=== PATIENT | male | born 1955 | race Caucasian/White ===

== ENCOUNTER 2022-04-09 07:40 | Outpatient (CLI) | payer MEDICARE, BC, SELFPAY ==
[2022-04-09 09:00] LABS: Chloride* 103 mmol/L (96-114)
[2022-04-09 09:01] LABS: Potassium* 3.1 mmol/L (3.6-5.1); Sodium* 141 mmol/L (135-149)
[2022-04-09 09:03] LABS: Alkaline Phosphatase* 62 U/L (40-150); Aspartate Amino Transferase* 24 U/L (12-35); Bilirubin Total* 0.7 mg/dL (0.1-1.5); Blood Urea Nitrogen* 25 mg/dL (7-30); Calcium* 9.1 mg/dL (8.4-10.6); Carbon Dioxide* 32 mmol/L (20-32); Cholesterol* 194 mg/dL (90-199); Creatinine* 1.3 mg/dL (0.5-1.5); Estimated Glomerular Filt Rate 60 ml/min; Glucose* 125 mg/dL (60-115); Total Protein* 6.4 g/dL (6.0-8.3); Triglycerides* 156 mg/dL (40-149)
[2022-04-09 09:04] LABS: Alanine Aminotransferase* 31 U/L (4-50); HDL Cholesterol* 38 mg/dL (>=40); LDL Cholesterol Calculated 125 mg/dL (<100)
[2022-04-09 09:27] LABS: PSA Screen* 2.26 ng/mL (0.10-4.00)
== END 2022-04-09 07:41 | disposition home or self-care (01) ==
LOC: NFLDREF 07:41
PROVIDERS: PCP Internal Medicine; Visit Provider Internal Medicine
DX: Z00.00 Encounter for general adult medical examination without abnormal findings (principal); I10 Essential (primary) hypertension; Z12.5 Encounter for screening for malignant neoplasm of prostate; Z13.6 Encounter for screening for cardiovascular disorders
CPT/HCPCS: 80053; 80061; 84153

== ENCOUNTER 2023-04-06 07:50 | Outpatient (CLI) | payer MEDICARE, BC, SELFPAY ==
--- OUTSIDE RECORDS SUMMARY | 2023-04-09 06:39 | XMS_ITS | Encounter Summary ---
Author Name Unknown Organization [place] Address [facility] [place] [address] Care Team Providers Care Policy Writer Name Role Phone Joe Dumas MD Primary Care Provider [phone] Encounter Details Date Type Department Care Team (Late st Contact Info) Description 06/10/2021 Orders Only [facility] [address] [place] [phone] Jeny Celaya PA-C [facility] [address] [place], [place] [address] Pre-op testing (Primary Dx) Social History Tobacco Use Types Packs/Day Years Used Date Smoking Tobacco: Never Assessed Sex and Gender Information Value Date Recorded Sex Assigned at Not on file Gender Identity Not on file Sexual Orientation Not on file COVID-19 Exposure Response Date Recorded In the last month, have you been in contact with someone who was confirmed or suspected to have Coronavirus / COVID-19? No / Unsure 06/10/2021 1:42 PM CDT documented as of this encounter Plan of Treatment Upcoming Encounters Date Type Department Care Team (Latest Contact Info) Description 08/18/2023 8:55 AM CDT Hospital Encounter [facility] [address] [place] [address] Nadeem Herman MD [facility] [address] [place], [place] [address] 08/18/2023 8:55 AM CDT - 08/18/2023 12:10 PM CDT Surgery [facility] [address] [place] [phone] Nadeem Herman MD [facility] [address] [place] [address] Left Total Knee Arthroplasty Scheduled Procedures Name Priority Associated Diagnoses Date/Ti me ARTHROPLASTY, KNEE, TOTAL Degenerative arthritis of left knee 08/18/2023 8:55 AM CDT documented as of this encounter Results * Hemoglobin (06/10/2021 1:59 PM CDT) Hemoglobin 14.2 13.3 - 17.7 g/dL 06/10/2021 2:02 PM CDT LABORATORY Blood STRUCTURE OF RIGHT UPPER LIMB / Unknown Venipuncture / Unknown 06/10/2021 1:59 PM CDT 06/10/2021 1:59 PM CDT Jeny Celaya PA-C LAB - BLOOD ORDER [facility] [address] [facility] Lab (1st floor, no room number) [place] [address], [facility] [phone] * Creatinine (06/10/2021 1:59 PM CDT) Creatinine 1.11 0.66 - 1.25 mg/dL 06/10/2021 2:18 PM CDT LABORATORY GFR Estimate 73 >60 mL/min/1.7 3m2 06/10/2021 2:18 PM CDT LABORATORY Comment:Effective February 192020 eGFRcr in adults is calculated using the 2020 CKD-EPI creatinine equation which includes age and gender (Ayad bee al., NEJM, DOI: 10.1056/BKRMdc3577873) Blood STRUCTURE OF RIGHT UPPER LIMB / Unknown Venipuncture / Unknown 06/10/2021 1:59 PM CDT 06/10/2021 1:59 PM CDT Jeny Celaya PA-C LAB - BLOOD ORDER [facility] [address] [facility] Lab (1st floor, no room number) [place] [address], [facility] [phone] documented in this encounter Visit Diagnoses Diagnosis Pre-op testing- Primary Preoperative examination, unspecified Degenerative arthritis of left knee Osteoarthrosis, unspecified whether generalized or localized, lower leg documented in this encounter Care Teams Policy Writer Relationship Specialty Start Date End Date Joe Dumas MD [place] [address] [place] [address] PCP - General Student in organized health care education/training program 05/28/21 documented as of this encounter
--- OUTSIDE RECORDS SUMMARY | 2023-04-09 06:39 | XMS_ITS | Clinical Summary ---
Author Name Unknown Organization [place] Address [address] [place] [address] Care Team Providers Care Slot Key Person Name Role Phone Joe Dumas MD Primary Care Provider Allergies Active Allergy Reactions Criticality Noted Date Comments Lisinopril Swelling High 06/24/2021 Swollen tongue Pollen Extract Itching 06/25/2021 [place] tree pollen Medications Medication Sig Dispensed Refills Start Date End Date Status triamterene-HCTZ (MAXZIDE-25) 37.5-25 MG tablet Take 1 tablet by mouth 2 times daily 0 Active amLODIPine (NORVASC) 5 MG tablet Take 5 mg by mouth daily 0 Active losartan (COZAAR) 50 MG tablet Take 50 mg by mouth daily 0 Active nicotine (NICODERM CQ) 14 MG/24HR [address] 1 patch onto the skin every 24 hours 0 Active cetirizine (ZYRTEC) 10 MG tablet Take 10 mg by mouth daily 0 Active calcium carbonate 600 mg-vitamin D 400 units (CALTRATE) 600-400 MG-UNIT per tablet Take 1 tablet by mouth daily 0 Active aspirin (ASA) 325 MG EC tabletIndications:S tatus post total knee replacement, right Take 1 tablet (325 mg) by mouth daily 42 tablet 0 06/25/2021 Active senna-docusate (SENOKOT-S/PERICOLA CE) 8.6-50 MG tabletIndications:S tatus post total knee replacement, right Take 1-2 tablets by mouth 2 times daily Take while on oral narcotics to prevent or treat constipation. 30 tablet 0 06/25/2021 Active acetaminophen (TYLENOL) 325 MG tabletIndications:S tatus post total knee replacement, right Take 3 tablets (975 mg) by mouth 4 times daily 100 tablet 0 06/25/2021 Active ketorolac (TORADOL) 10 MG tabletIndications:S tatus post total knee replacement, right Take 1 tablet (10 mg) by mouth every 6 hours as needed for moderate pain Do not take at the same time as Celebrex. Start Celebrex when Toradol is completed. 6 tablet 0 06/25/2021 Active celecoxib (CELEBREX) 200 MG capsuleIndications: Status post total knee replacement, right Take 1 capsule (200 mg) by mouth daily Do not take within 6 hours of ibuprofen (MOTRIN, ADVIL) or ketorolac (TORADOL) if prescribed. Start Celebrex when toradol completed. 42 capsule 0 06/25/2021 Active oxyCODONE (ROXICODONE) 5 MG tabletIndications:S tatus post total knee replacement, right Take 1-2 tablets (5-10 mg) by mouth every 4 hours as needed 40 tablet 0 06/26/2021 Active Active Problems Problem Noted Date Diagnosed Date Status post total knee replacement, right 2021 Social History Tobacco Use Types Packs/Day Years Used Date Smoking Tobacco: Former Cigarettes Q uit: 04/17/2021 Smokeless Tobacco: Never Alcohol Use Standard Drinks/Week Comments Yes 0 (1 standard drink = 0.6 oz pur e alcohol) 1-2/week Adolescent Education Answer Date Record ed Getting School Help Needed Not on file 12/11 Sex and Gender Information Value Date Recorded Sex Assigned at Not on file Gender Identity Not on file Sexual Orientation Not on file Last Filed Vital Signs Vital Sign [place] Time Taken Comments Blood Pressure 150/79 06/26/2021 8:43 AM CDT Pulse 103 06/26/2021 8:43 AM CDT Temperature 36.2 ??C (97.2 ??F) 06/26/2021 8:43 AM CD T Respiratory Rate 16 06/26/2021 8:43 AM CDT Oxygen Saturation 94% 06/26/2021 8:43 AM CDT Inhaled Oxygen Concentration - - Weight 108.6 kg (239 lb 6.4 oz) 06/25/2021 7:22 AM CDT Height 167.6 cm (5' 6) 06/25/2021 7:22 AM CDT Body Mass Index 38.64 06/25/2021 7:22 AM CDT Plan of Treatment Upcoming Encounters Date Type Department Care Team (Latest Contact Info) Description 08/18/2023 8:55 AM CDT Hospital Encounter [facility] [address] [place] [phone] Nadeem Herman MD [facility] [address] [place], [place] [address] 08/18/2023 8:55 AM CDT - 08/18/2023 12:10 PM CDT [facility] [address] [place] [phone] Nadeem Herman MD [facility] [address] [facility] [address] [place], [place] [phone] Left Total Knee Arthroplasty Scheduled Procedures Name Priority Associated Diagnoses Date/Ti me ARTHROPLASTY, KNEE, TOTAL Degenerative arthritis of left knee 08/18/2023 8:55 AM CDT Health Maintenance Due Date Last Done Comments ADVANCE CARE PLANNING 1954 ANNUAL REVIEW OF HM ORDERS 1954 CT COLONOGRAPHY 1954 FIT 1954 FLEX SIG 1954 sDNA (Cologuard) 1954 COLONOSCOPY 1964 COLORECTAL CANCER SCREENING 1964 HEPATITIS C SCREENING 1972 LIPID 1989 LUNG CANCER SCREENING 2004 RSV VACCINE ( & 60+) (1 - 1-dose 60+ series) 2014 AORTIC ANEURYSM SCREENING (SYSTEM ASSIGNED) 2019 FALL RISK ASSESSMENT 2019 MEDICARE ANNUAL WELLNESS VISIT 2019 COVID-19 Vaccine ( season) 2022 01/29/2021, 06/19/2020, 05/21/2020 INFLUENZA VACCINE (#1) 2022 , 03/27/2020, 12/21/2019, Additional history exists PHQ-2 (once per calendar year) 2023 DTAP/TDAP/TD IMMUNIZATION (2 - Td or Tdap) 04/16/2023 04/16/2013, 03/28/2007 Pneumococcal Vaccine: 65+ Years (3 of 3 - PPSV23 or PCV20) 04/20/2024 04/20/2019, 03/08/2019 ZOSTER IMMUNIZATION Completed 04/11/2021, 01/14/2021, 12/22/2020, Additional history exists HPV IMMUNIZATION Aged Out No longer e ligible based on patient's age to complete this topic IPV IMMUNIZATION Aged Out No longer e ligible based on patient's age to complete this topic MENINGITIS IMMUNIZATION Aged Out No l onger eligible based on patient's age to complete this topic RSV MONOCLONAL ANTIBODY Aged Out No l onger eligible based on patient's age to complete this topic Goals Goal Patient Goal Type Associated Problems Recent Progress Patient-Stated? Author Total Joint Replacement Hip Pathway Care Plan Total Joint Replacement Hip Pathway No Mireille [employer] Devices Implanted Type Area Lead Based Paint Technician Device Identifier Shelf Expiration Date Model / Serial / Lot Bone Cement Radiopaque Simplex Hv Full Dose 6194-1-001 - [id number] Implanted:Qty: 1 on 06/25/2021 by Nadeem Herman MD at [facility] Cement, Bone Right: Knee [employer] 08/18/2022 6194-1-001 / / [id number] Identity Imprint Ps Tibial Insert Sz 4 6mm Right Implanted:Qty: 1 on 06/25/2021 by Nadeem Herman MD at [facility] N/A: Knee CONFORMIS 04/20/2022 [id number] / / [id number] Additional Health Concerns Problem Noted Date Diagnosed Date Total Joint Replacement Hip Pathway 03/01/2023 Advance Directives For more information, please contact: [phone] Latest Code Status on File Code Status Date Activated Date Inactivated Comments Full Code 06/25/2021 2:35 PM 06/26/2021 12:47 PM All ba sic and advanced life-sustaining interventions are performed as appropriate Question Answer Comments Code status determined by: Unable to determine; FULL CODE until documents or legal decision maker available Care Teams Slot Key Person Relationship Specialty Start Date End Date Joe Dumas MD [address] [address] PCP - General Student in organized health care education/training program 05/28/21
--- OUTSIDE RECORDS SUMMARY | 2023-04-09 06:39 | XMS_ITS | Referral Summary ---
Author Name Unknown Organization [facility] Address [address] [place] [address] Care Team Providers Care Ice Cream Scooper Name Role Phone Unavailable Primary Care Provider Unavailabl e Source Comments Patient records contain information from all sites at [facility]. For routine questions regarding patient records, call [phone] during business hours, M-F 8:00 AM - 5:00 PM Central Time. Record requests for emergency care only can be directed to [phone] at any time.[facility] Immunizations Name Administration Dates Next Due DT, Pediatric 05/02/2007 Influenza Split 04/09/2013 Social History Tobacco Use Types Packs/Day Years Used Date Smoking Tobacco: Some Days Nutrition Answer Date Recorded Nutrition: EVOO Fat Source Unknown 06/30 Nutrition: Servings of Fruits/Vegetables per Day Not on file 06/30/2022 Dental Answer Date Recorded Dental: Regular Dentist Unknown 07/01/19 23 Sex and Gender Information Value Date Recorded Sex Assigned at Not on file Gender Identity Not on file Sexual Orientation Not on file Last Filed Vital Signs Vital Sign [place] Time Taken Comments Blood Pressure 125/72 04/27/2013 7:35 AM HUMAN RESOURCES CONSULTANT Pulse 63 04/27/2013 7:35 AM HUMAN RESOURCES CONSULTANT Temperature - - Respiratory Rate - - Oxygen Saturation - - Inhaled Oxygen Concentration - - Weight 101 kg (223 lb 5.2 oz) 04/27/2013 7:35 AM HUMAN RESOURCES CONSULTANT Height 164.8 cm (5' 4.88) 04/27/2013 7:35 AM CS T Body Mass Index 37.3 04/27/2013 7:35 AM HUMAN RESOURCES CONSULTANT Plan of Treatment Not on file
--- OUTSIDE RECORDS SUMMARY | 2023-04-09 06:39 | XMS_ITS | Clinical Summary ---
Author Name Unknown Organization [facility] Address [address] [place] [address] Care Team Providers Care End Maker Name Role Phone Unavailable Primary Care Provider Unavailabl e Source Comments Patient records contain information from all sites at [facility]. For routine questions regarding patient records, call [phone] during business hours, M-F 8:00 AM - 5:00 PM Central Time. Record requests for emergency care only can be directed to [phone] at any time.[facility] Immunizations Name Administration Dates Next Due DT, Pediatric 05/02/2007 Influenza Split 04/09/2013 Social History Tobacco Use Types Packs/Day Years Used Date Smoking Tobacco: Some Days Nutrition Answer Date Recorded Nutrition: EVOO Fat Source Unknown 06/30 Nutrition: Servings of Fruits/Vegetables per Day Not on file 06/30/2022 Dental Answer Date Recorded Dental: Regular Dentist Unknown 07/01/19 Sex and Gender Information Value Date Recorded Sex Assigned at Not on file Gender Identity Not on file Sexual Orientation Not on file Last Filed Vital Signs Vital Sign [place] Time Taken Comments Blood Pressure 125/72 04/27/2013 7:35 AM WARDROBE SPECIALIST Pulse 63 04/27/2013 7:35 AM WARDROBE SPECIALIST Temperature - - Respiratory Rate - - Oxygen Saturation - - Inhaled Oxygen Concentration - - Weight 101 kg (223 lb 5.2 oz) 04/27/2013 7:35 AM WARDROBE SPECIALIST Height 164.8 cm (5' 4.88) 04/27/2013 7:35 AM CS T Body Mass Index 37.3 04/27/2013 7:35 AM WARDROBE SPECIALIST Plan of Treatment Health Maintenance Due Date Last Done Comments CT Colonography 1954 Cologuard 1954 Colonoscopy 1954 Colorectal Cancer Screening 1954 FIT 1954 Hepatitis C Screening 1954 Depression Screening (Annual PHQ-2) 03/21/2023 Fall Risk Screen (Annual) 03/21/2023 Pneumococcal vaccine (65+ ye ars) (3 of 3 - PPSV23 or PCV20) 03/08/2024 04/20/2019, 03/08/2019 Fasting Glucose for Diabetes Screening 06/26/2024 06/26/2021 DTaP,Tdap,and Td Vaccines (4 - Td or Tdap) 04/12/2032 04/12/2022, 04/16/2013, 05/02/2007, Additional history exists Zoster Vaccines Completed 04/11/2021, 12/20, 12/22/2020, Additional history exists COVID-19 Vaccine Completed 01/05/2023, 11/2021, 08/12/2021, Additional history exists Influenza Vaccine Completed 01/05/2023, , 12/22/2020, Additional history exists
--- OUTSIDE RECORDS SUMMARY | 2023-04-09 06:39 | XMS_ITS | Encounter Summary ---
Author Name Unknown Organization [facility] Address [address] [place] [address] Care Team Providers Care Pvc Loader Name Role Phone Unavailable Primary Care Provider Unavailabl e Reason for Referral * Outpatient (Routine) - Authorized Specialty Diagnoses / Procedures Referred By Phil leyva Referred To Contact Diagnoses Canine Deputy Medical Exam Procedures OCC Drug screening Karol Giron P.A.-C., P.A. [address] [place] [address] [facility] Referral ID Status Reason Start Date Expiration Date V isits Requested Visits Authorized [id number] Authorized 06/30/2022 06/30/2023 1 1 Reason for Visit * Reason Comments Drug Screen * Appointment Request (Routine) - Closed Specialty Diagnoses / Procedures Referred By Phil leyva Referred To Contact Occupational Medicine Referral ID Status Reason Start Date Expiration Date Visits Re quested Visits Authorized [id number] Closed 06/30/2022 06/30/2023 1 Encounter Details Date Type Department Care Team (Latest Contact Info) Description 06/30/2022 11:45 AM CDT Clinical Support Department of Occupational Medicine in [place], [place] [address], [place] [address] Gilma Stewart, LTeresaP.N. Canine Deputy Medical Exam (Primary Dx) Social History Tobacco Use Types [...] on file Sexual Orientation Not on file documented as of this encounter Plan of Treatment Scheduled Orders Name Type Priority Associated Diagnoses Orde r Schedule OCC Drug screening Procedures Routine Canine Deputy Medical Exam Ordered: 06/30/2022 documented as of this encounter Visit Diagnoses Diagnosis Canine Deputy Medical Exam- Primary documented in this encounter
--- OUTSIDE RECORDS SUMMARY | 2023-04-09 06:39 | XMS_ITS ---
Author Name Unknown Organization [facility] Address [address] [place] [address] Care Team Providers Care Bobbin Inspector Name Role Phone Unavailable Unavailable Unavailable Surgery Details Not on file Complications Check Surgery Details section. Procedure Estimated Blood Loss Check Surgery Details section. Procedure Findings Check Surgery Details section. Procedure Specimens Taken Check Surgery Details section.
--- OUTSIDE RECORDS SUMMARY | 2023-04-09 06:39 | XMS_ITS | Referral Summary ---
Author Name Unknown Organization [place] Address [address] [place] [address] Care Team Providers Care Hall Worker Name Role Phone Joe Dumas MD Primary Care Provider [phone] Allergies Active Allergy Reactions Criticality Noted Date Comments Lisinopril Swelling High 06/24/2021 Swollen tongue Pollen Extract Itching 06/25/2021 [place] tree pollen Medications Medication Sig Dispensed Refills [...] Description 08/18/2023 8:55 AM CDT Hospital Encounter [facility] PeriOP Services [address] [place] [phone] Nadeem Herman MD [facility] [address] [facility] [address] [place], [place] [address] 08/18/2023 8:55 AM CDT - 08/18/2023 12:10 PM CDT Surgery [facility] Services [address] [place] [phone] Nadeem Herman MD [facility] [address] [facility] [address] [place], [place] [address] Left Total Knee Arthroplasty Scheduled Procedures Name Priority Associated Diagnoses Date/Ti me ARTHROPLASTY, KNEE, TOTAL Degenerative arthritis of left knee 08/18/2023 8:55 AM CDT Goals Goal Patient Goal Type Associated Problems Recent Progress Patient-Stated? Author Total Joint Replacement Hip Pathway Care Plan Total Joint Replacement Hip Pathway No Mireille Rosales Medical Devices Implanted Type Area Warehouse And Receiving Supervisor Device Identifier Shelf Expiration Date Model / Serial / Lot Bone Cement Radiopaque Simplex Hv Full Dose 6194-1-001 - [id number] Implanted:Qty: 1 on 06/25/2021 by Nadeem Herman MD at [facility] Cement, Bone Right: Knee [employer] 08/18/2022 6194-1-001 / / [id number] Identity Imprint Ps Tibial Insert Sz 4 6mm Right Implanted:Qty: 1 on 06/25/2021 by Nadeem Herman MD at [facility] N/A: Knee CONFORMIS 04/20/2022 [id number] / / [id number] Additional Health Concerns Problem Noted Date Diagnosed Date Total Joint Replacement Hip Pathway 03/01/2023 Advance Directives For more information, please contact: [phone] Latest Code Status on File Code Status Date Activated Date Inactivated Comments Full Code 06/25/2021 2:35 PM 06/26/2021 12:47 PM All ba sic and advanced life-sustaining interventions are performed as appropriate Question Answer Comments Code status determined by: Unable to determine; FULL CODE until documents or legal decision maker available Care Teams Hall Worker Relationship Specialty Start Date End Date Joe Dumas MD [address] [address] PCP - General Student in organized health care education/training program 05/28/21
--- OUTSIDE RECORDS SUMMARY | 2023-04-09 06:39 | XMS_ITS | Encounter Summary ---
Author Name Unknown Organization [place] Address [address] [place] [address] Care Team Providers Care Tennis Professional Name Role Phone Joe Dumas MD Primary Care Provider [phone] Encounter Details Date Type Department Care Team (Late st Contact Info) Description 03/10/2021 Documentation Only INTERFACED REPORT Unknown, Provider Social History Tobacco Use Types Packs/Day Years Used Date Smoking Tobacco: Never Assessed Sex and Gender Information Value Date Recorded Sex Assigned at Not on file Gender Identity Not on file Sexual Orientation Not on file documented as of this encounter Plan of Treatment Upcoming Encounters Date Type Department Care Team (Latest Contact Info) Description 08/18/2023 8:55 AM CDT Hospital Encounter [facility] [address] [place] [phone] Nadeem Herman MD [facility] [address] [facility] [address] [place], [place] [address] 08/18/2023 8:55 AM CDT - 08/18/2023 12:10 PM CDT Surgery [facility] [address] [place] [phone] Nadeem Herman MD [facility] [address] [facility] [address] [place], [place] [address] Left Total Knee Arthroplasty Scheduled Procedures Name Priority Associated Diagnoses Date/Ti me ARTHROPLASTY, KNEE, TOTAL Degenerative arthritis of left knee 08/18/2023 8:55 AM CDT documented as of this encounter Visit Diagnoses Not on filedocumented in this encounter Care Teams Tennis Professional Relationship Specialty Start Date End Date Joe Dumas MD [address] [address] PCP - General Student in organized health care education/training program 05/28/21 documented as of this encounter
== END 2023-04-06 07:51 | disposition home or self-care (01) ==
LOC: NFLDREF 04-09 06:37
PROVIDERS: PCP Internal Medicine; Referring Provider Internal Medicine; Visit Provider Internal Medicine
DX: Z00.00 Encounter for general adult medical examination without abnormal findings (principal); E87.6 Hypokalemia; I10 Essential (primary) hypertension; E66.9 Obesity, unspecified; Z12.5 Encounter for screening for malignant neoplasm of prostate
CPT/HCPCS: 80053; 80061; G0103

== ENCOUNTER 2023-09-05 08:16 | Outpatient (CLI) | payer MEDICARE, BC, SELFPAY ==
--- OUTSIDE RECORDS SUMMARY | 2023-09-05 08:21 | XMS_ITS | Clinical Summary ---
Author Organization [facility] Address [address] [place] [address] Care Team Providers Care Catering Convention Services Manager Name Role Phone Unavailable Primary Care Provider Unavailabl e Source Comments Patient records contain information from all sites at [facility]. For routine questions regarding patient records, call [phone] during business hours, M-F 8:00 AM - 5:00 PM Central Time. Record requests for emergency care only can be directed to [phone] at any time.[facility] Immunizations Name Administration Dates Next Due [...] Comments Blood Pressure 125/72 04/27/2013 7:35 AM AGRISCIENCE INSTRUCTOR Pulse 63 04/27/2013 7:35 AM AGRISCIENCE INSTRUCTOR Temperature - - Respiratory Rate - - Oxygen Saturation - - Inhaled Oxygen Concentration - - Weight 101 kg (223 lb 5.2 oz) 04/27/2013 7:35 AM AGRISCIENCE INSTRUCTOR Height 164.8 cm (5' 4.88) 04/27/2013 7:35 AM CS T Body Mass Index 37.3 04/27/2013 7:35 AM AGRISCIENCE INSTRUCTOR Plan of Treatment Health Maintenance Due Date Last Done Comments CT Colonography 1954 Cologuard 1954 Colonoscopy 1954 Colorectal Cancer Screening 1954 FIT 1954 Hepatitis C Screening 1954 Depression Screening (Annual PHQ-2) 03/21/2023 Fall Risk Screen (Annual) 03/21/2023 COVID-19 Vaccine (7 - 2022-2 4 season) 2023 01/05/2023, 01/27/2022, 08/12/2021, Additional history exists Pneumococcal vaccine (65+ ye ars) (3 of 3 - PPSV23 or PCV20) 03/08/2024 04/20/2019, 03/08/2019 Fasting Glucose for Diabetes Screening 06/26/2024 06/26/2021 DTaP,Tdap,and Td Vaccines (4 - Td or Tdap) 04/12/2032 04/12/2022, 04/16/2013, 05/02/2007, Additional history exists Zoster Vaccines Completed 04/11/2021, 12/20, 12/22/2020, Additional history exists Influenza Vaccine Completed 01/05/2023, , 12/22/2020, Additional history exists Procedures Procedure Name Priority Date/Time Associated Diagnosis Comments EXTI BASIC METABOLIC PANEL, FASTING, S Routine 06/26/2021 7:50 AM CDT from Last 3 Months or Most Recently Relevant to Health Maintenance
--- OUTSIDE RECORDS SUMMARY | 2023-09-05 08:21 | XMS_ITS | Encounter Summary ---
Author Organization [place] Address [address] [place] [address] Care Team Providers Care Breed To Wean Production Technician Name Role Phone Joe Dumas MD Primary Care Provider [phone] Encounter Details Date Type Department Care Team (Late st Contact Info) Description 03/10/2021 Documentation Only INTERFACED REPORT Unknown, Provider Social History Tobacco Use Types Packs/Day Years Used Date Smoking Tobacco: Never Assessed Sex and Gender Information Value Date Recorded Sex Assigned at Not on file Gender Identity Not on file Sexual Orientation Not on file documented as of this encounter Plan of Treatment Not on file documented as of this encounter Visit Diagnoses Not on filedocumented in this encounter Care Teams Breed To Wean Production Technician Relationship Specialty Start Date End Date Joe Dumas MD [address] [place] [address] PCP - General Student in organized health care education/training program 05/28/21 documented as of this encounter
--- OUTSIDE RECORDS SUMMARY | 2023-09-05 08:21 | XMS_ITS ---
Author Organization [facility] Address [address] [place] [address] Care Team Providers Care Marine Architect Name Role Phone Unavailable Unavailable Unavailable Surgery Details Not on file Complications Check Surgery Details section. Procedure Estimated Blood Loss Check Surgery Details section. Procedure Findings Check Surgery Details section. Procedure Specimens Taken Check Surgery Details section.
--- OUTSIDE RECORDS SUMMARY | 2023-09-05 08:21 | XMS_ITS | Referral Summary ---
Author Organization [facility] Address [address] [place] [address] Care Team Providers Care Manager Safe Name Role Phone Unavailable Primary Care Provider Unavailabl e Source Comments Patient records contain information from all sites at [facility]. For routine questions regarding patient records, call [phone] during business hours, M-F 8:00 AM - 5:00 PM Central Time. Record requests for emergency care only can be directed to [phone] at any time.[facility] Immunizations Name Administration Dates Next Due [...] Comments Blood Pressure 125/72 04/27/2013 7:35 AM CRATE BUILDER Pulse 63 04/27/2013 7:35 AM CRATE BUILDER Temperature - - Respiratory Rate - - Oxygen Saturation - - Inhaled Oxygen Concentration - - Weight 101 kg (223 lb 5.2 oz) 04/27/2013 7:35 AM CRATE BUILDER Height 164.8 cm (5' 4.88) 04/27/2013 7:35 AM CS T Body Mass Index 37.3 04/27/2013 7:35 AM CRATE BUILDER Plan of Treatment Not on file Procedures Procedure Name Priority Date/Time Associated Diagnosis Comments EXTI BASIC METABOLIC PANEL, FASTING, S Routine 06/26/2021 7:50 AM CDT from Last 3 Months or Most Recently Relevant to Health Maintenance
--- OUTSIDE RECORDS SUMMARY | 2023-09-05 08:21 | XMS_ITS | Encounter Summary ---
Author Organization [place] Address [address] [place] [address] Care Team Providers Care Rock Picker Name Role Phone Joe Dumas MD Primary Care Provider [phone] Encounter Details Date Type Department Care Team (Late st Contact Info) Description 06/10/2021 Orders Only [facility] [address] [place] [address] Jeny Celaya PA-C [facility] [address] [place] [address] Pre-op testing (Primary Dx) Social History Tobacco [...] on file documented as of this encounter Results * Hemoglobin (06/10/2021 1:59 PM CDT) Hemoglobin 14.2 13.3 - 17.7 g/dL 06/10/2021 2:02 PM CDT [facility] Blood STRUCTURE OF RIGHT UPPER LIMB / Unknown Venipuncture / Unknown 06/10/2021 1:59 PM CDT 06/10/2021 1:59 PM CDT Jeny Sim-Holly PA-C LAB - BLOOD ORDER [facility] [address] Lab (1st floor, no room number) [place] [address], [facility] [phone] * Creatinine (06/10/2021 1:59 PM CDT) Creatinine 1.11 0.66 - 1.25 mg/dL 06/10/2021 2:18 PM CDT LABORATORY GFR Estimate 73 >60 mL/min/1.7 3m2 06/10/2021 2:18 PM CDT LABORATORY Comment:Effective February 192020 eGFRcr in adults is calculated using the 2020 CKD-EPI creatinine equation which includes age and gender (Ayad et al., NEJM, DOI: 10.1056/HRKPkr8146108) Blood STRUCTURE OF RIGHT UPPER LIMB / Unknown Venipuncture / Unknown 06/10/2021 1:59 PM CDT 06/10/2021 1:59 PM CDT Jeny Sim-Holly PA-C LAB - BLOOD ORDER [facility] Acute Care Lab [address] Lab (1st floor, no room number) [place] [address], [facility] [phone] documented in this encounter Visit Diagnoses Diagnosis Pre-op testing- Primary Preoperative examination, unspecified documented in this encounter Care Teams Rock Picker Relationship Specialty Start Date End Date Joe Dumas MD [facility] [address] [place] [address] PCP - General Student in organized health care education/training program 05/28/21 documented as of this encounter
--- OUTSIDE RECORDS SUMMARY | 2023-09-05 08:21 | XMS_ITS | Clinical Summary ---
Author Organization [place] Address [address] [place] [address] Care Team Providers Care Consulting Psychologist Name Role Phone Joe Dumas MD Primary Care Provider Allergies Active Allergy Reactions Criticality Noted Date Comments Lisinopril Swelling High 06/24/2021 Swollen tongue Pollen Extract Itching 06/25/2021 [place] tree pollen Medications Medication Sig Dispensed Refills Start Date End Date Status triamterene-HCTZ (MAXZIDE-25) 37.5-25 MG tablet Take 1 tablet by mouth 2 times daily Active amLODIPine (NORVASC) 5 MG tablet Take 5 mg by mouth daily Active losartan (COZAAR) 50 MG tablet Take 50 mg by mouth daily Active nicotine (NICODERM CQ) 14 MG/24HR [address] 1 patch onto the skin every 24 hours Active cetirizine (ZYRTEC) 10 MG tablet Take 10 mg by mouth daily Active calcium carbonate 600 mg-vitamin D 400 units (CALTRATE) 600-400 MG-UNIT per tablet Take 1 tablet by mouth daily Active aspirin (ASA) 325 MG EC tabletIndications:S tatus post total knee replacement, right Take 1 tablet (325 mg) by mouth daily 42 tablet 06/25/2021 Active senna-docusate (SENOKOT-S/PERICOLA CE) 8.6-50 MG tabletIndications:S tatus post total knee replacement, right Take 1-2 tablets by mouth 2 times daily Take while on oral narcotics to prevent or treat constipation. 30 tablet 06/25/2021 Active acetaminophen (TYLENOL) 325 MG tabletIndications:S tatus post total knee replacement, right Take 3 tablets (975 mg) by mouth 4 times daily 100 tablet 06/25/2021 Active ketorolac (TORADOL) 10 MG tabletIndications:S tatus post total knee replacement, right Take 1 tablet (10 mg) by mouth every 6 hours as needed for moderate pain Do not take at the same time as Celebrex. Start Celebrex when Toradol is completed. 6 tablet 06/25/2021 Active celecoxib (CELEBREX) 200 MG capsuleIndications: Status post total knee replacement, right Take 1 capsule (200 mg) by mouth daily Do not take within 6 hours of ibuprofen (MOTRIN, ADVIL) or ketorolac (TORADOL) if prescribed. Start Celebrex when toradol completed. 42 capsule 06/25/2021 Active oxyCODONE (ROXICODONE) 5 MG tabletIndications:S tatus post total knee replacement, right Take 1-2 tablets (5-10 mg) by mouth every 4 hours as needed 40 tablet 06/26/2021 Active Active Problems Problem Noted Date [...] 06/25/2021 7:22 AM CDT Plan of Treatment Health Maintenance Due Date Last Done Comments ADVANCE CARE PLANNING 1955 ANNUAL REVIEW OF HM ORDERS 1954 CT COLONOGRAPHY 1954 FIT 1954 FLEX SIG 1954 sDNA (Cologuard) 1954 COLONOSCOPY 1964 COLORECTAL CANCER SCREENING 1964 HEPATITIS C SCREENING 1972 LIPID 1994 LUNG CANCER SCREENING 2004 RSV VACCINE ( & 60+) (1 - 1-dose 60+ series) 2014 FALL RISK ASSESSMENT 2019 MEDICARE ANNUAL WELLNESS VISIT 2019 COVID-19 Vaccine ( season) 2022 01/29/2021, 06/19/2020, 05/21/2020 PHQ-2 (once per calendar year) 2023 DTAP/TDAP/TD IMMUNIZATION (2 - Td or Tdap) 04/16/2023 04/16/2013, 03/28/2007 INFLUENZA VACCINE (Season Ended) 2023 12/22/2020, 03/27/2020, 12/21/2019, Additional history exists Pneumococcal Vaccine: 65+ Years (3 of 3 - PPSV23 or PCV20) 04/20/2024 04/20/2019, 03/08/2019 GLUCOSE 06/26/2024 06/26/2021 ZOSTER IMMUNIZATION Completed 04/11/2021, 01/14/2021, 12/22/2020, Additional [...] on patient's age to complete this topic Medical Devices Implanted Type Area Skin Care Instructor Device Identifier Shelf Expiration Date Model / Serial / Lot Bone Cement Radiopaque Simplex Hv Full Dose 6194-1-001 - [id number] Implanted:Qty: 1 on 06/25/2021 by Nadeem Herman MD at [facility] Cement, Bone Right: Knee [employer] 10/18/2022 6194-1-001 / / [id number] Bone Cement Radiopaque Simplex Hv Full Dose 6194-1-001 - [id number] Implanted:Qty: 1 on 06/25/2021 by Nadeem Herman MD at [facility] Cement, Bone Right: Knee [employer] 08/18/2022 6194-1-001 / / [id number] Identity Imprint Ps Tibial Insert Sz 4 6mm Right Implanted:Qty: 1 on 06/25/2021 by Nadeem Herman MD at [facility] N/A: Knee [employer] 04/20/2022 [id number] / / [id number] Identity Imprint Ps Femoral Implant Sz 4 Right Implanted:Qty: 1 on 06/25/2021 by Nadeem Herman MD at [facility] Right: Knee [employer] 06/18/2022 [id number] / / [id number] Itotal Ipoly Xe 38mm X 9mm Cemented Oval Patella Implanted:Qty: 1 on 06/25/2021 by Nadeem Herman MD at [facility] Right: Knee [employer] 04/20/2023 [id number] / / [id number] Identity Imprint Ps Tibial Tray Sz 4 Implanted:Qty: 1 on 06/25/2021 by Ndaeem Herman MD at [facility] Right: Knee [employer] 06/18/2022 [id number] / / [id number] Identity Imprint Ps Jigs,Right Implanted:Qty: 1 on 06/25/2021 by Nadeem Herman MD at [facility] Right: Knee [employer] 06/18/2022 [id number] / [id number] / Identity Imprint Ps Tibial Insert Trial Sz 4 10mm Right Implanted:Qty: 1 on 06/25/2021 by Nadeem Herman MD at [facility] Right: Knee [employer] 05/18/2022 [id number] / / [id number] Identity Imprint Ps Tibial Insert Trial Sz 4 7mm Right Implanted:Qty: 1 on 06/25/2021 by Nadeem Herman MD at [facility] Right: Knee [employer] 05/18/2022 [id number] / / [id number] Identity Imprint Ps Tibial Insert Trial Sz 4 8mm Right Implanted:Qty: 1 on 06/25/2021 by Nadeem Herman MD at [facility] N/A: Knee [employer] 05/18/2022 [id number] / / [id number] Procedures Procedure Name Priority Date/Time Associated Diagnosis Comments BASIC METABOLIC PANEL Routine 06/26/2021 7:50 AM CDT from Last 3 Months or Most Recently Relevant to Health Maintenance Results * (ABNORMAL) Basic metabolic panel (06/26/2021 7:50 AM CDT) Sodium 137 133 - 144 mmol/L 06/26/2021 8:37 AM T LABORATORY Potassium 3.3(L) 3.4 - 5.3 mmol/L 06/26/2021 8:37 AM [facility] Chloride 102 94 - 109 mmol/L 06/26/2021 8:37 AM T LABORATORY Carbon Dioxide (CO2) 28 20 - 32 mmol/L 06/26/2021 8:37 AM [facility] Anion Gap 7 3 - 14 mmol/L 06/26/2021 8:37 AM T [facility] Urea Nitrogen 22 7 - 30 mg/dL 06/26/2021 8:37 AM [facility] Creatinine 1.04 0.66 - 1.25 mg/dL 06/26/2021 8:37 AM [facility] Calcium 8.9 8.5 - 10.1 mg/dL 06/26/2021 8:37 AM T [facility] Glucose 137(H) 70 - 99 mg/dL 06/26/2021 8:37 AM [facility] GFR Estimate 79 >60 mL/min/1.7 3m2 06/26/2021 8:37 AM T [facility] Comment:Effective February 192020 eGFRcr in adults is calculated using the 2020 CKD-EPI creatinine equation which includes age and gender (Ayad et al., NEJ, DOI: 10.1056/WRPPft0651875) Blood STRUCTURE OF RIGHT UPPER LIMB / Unknown Venipuncture / Unknown 06/26/2021 7:50 AM CDT 06/26/2021 8:12 AM CDT Fe Ulloa PUMP ASSEMBLER LAB - BLOOD ORDERABL ES LABORATORY [facility] Acute Care Lab [address] [place] [address], [facility] [phone] from Last 3 Months or Most Recently Relevant to Health Maintenance Advance Directives For more information, please contact: [phone] * Full Code (Latest Code Status on File) Date Activated Date Inactivated Comments 06/25/2021 2:35 PM 06/26/2021 12:47 PM All basic and advanced life-sustaining interventions are performed as appropriate Question Answer Comments Code status determined by: Unable to det ermine; FULL CODE until documents or legal decision maker available Care Teams Consulting Psychologist Relationship Specialty Start Date End Date Joe Dumas MD [address] [place] [address] PCP - General Student in organized health care education/training program 05/28/21
--- OUTSIDE RECORDS SUMMARY | 2023-09-05 08:21 | XMS_ITS | Referral Summary ---
Author Organization [place] Address [address] [place] [address] Care Team Providers Care Modern Greek Studies Professor Name Role Phone Joe Dumas MD Primary Care Provider [phone] Allergies Active Allergy Reactions Criticality Noted Date Comments Lisinopril Swelling High 06/24/2021 Swollen tongue Pollen Extract Itching 06/25/2021 [place] tree pollen Medications Medication Sig Dispensed Refills [...] 06/25/2021 7:22 AM CDT Plan of Treatment Not on file Medical Devices Implanted Type Area Furnace Room Supervisor Device Identifier Shelf Expiration Date Model / Serial / Lot Bone Cement Radiopaque Simplex Hv Full Dose 6194-1-001 - [id number] Implanted:Qty: 1 on 06/25/2021 by Nadeem Herman MD at [facility] Cement, Bone Right: Knee [employer] 10/18/2022 6194-1-001 / / [id number] Bone Cement Radiopaque Simplex Hv Full Dose 6194-1-001 - [id number] Implanted:Qty: 1 on 06/25/2021 by Nadeem Herman MD at [facility] Cement, Bone Right: Knee [employer] 08/18/2022 6194-1-001 / / [id number] Identity Imprint Ps Tibial Insert Sz 4 6mm Right Implanted:Qty: 1 on 06/25/2021 by Nadeem Herman MD at [facility] N/A: Knee [employer] 04/20/2022 [id number] / / [id number] Identity Imprint Ps Femoral Implant Sz 4 Right Implanted:Qty: 1 on 06/25/2021 by Nadeem Herman MD at [facility] Right: Knee [employer] 06/18/2022 [id number] / / [id number] Itotal Ipoly Xe 38mm X 9mm Cemented Oval Patella Implanted:Qty: 1 on 06/25/2021 by Nadeem Herman MD at [facility] Right: Knee [employer] 04/20/2023 [id number] / / [id number] Identity Imprint Ps Tibial Tray Sz 4 Implanted:Qty: 1 on 06/25/2021 by Nadeem Herman MD at [facility] Right: Knee [employer]IS 06/18/2022 [id number] / / [id number] Identity Imprint Ps Jigs,Right Implanted:Qty: 1 on 06/25/2021 by Nadeem Hemran MD at [facility] Right: Knee [employer]FORMIS 06/18/2022 [id number] / [id number] / Identity Imprint Ps Tibial Insert Trial Sz 4 10mm Right Implanted:Qty: 1 on 06/25/2021 by Nadeem Herman MD at [facility] Right: Knee [employer]FORMIS 05/18/2022 [id number] / / [id number] Identity Imprint Ps Tibial Insert Trial Sz 4 7mm Right Implanted:Qty: 1 on 06/25/2021 by Nadeem Herman MD at [facility] Right: Knee CONFORMIS 05/18/2022 [id number] / / [id number] Identity Imprint Ps Tibial Insert Trial Sz 4 8mm Right Implanted:Qty: 1 on 06/25/2021 by Nadeem Herman MD at [facility] N/A: Knee [employer]FORMIS 05/18/2022 [id number] / / [id number] Procedures Procedure Name Priority Date/Time Associated Diagnosis Comments BASIC METABOLIC PANEL Routine 06/26/2021 7:50 AM CDT from Last 3 Months or Most Recently Relevant to Health Maintenance Results * (ABNORMAL) Basic metabolic panel (06/26/2021 7:50 AM CDT) Sodium 137 133 - 144 mmol/L 06/26/2021 8:37 AM CDT LABORATORY Potassium 3.3(L) 3.4 - 5.3 mmol/L 06/26/2021 8:37 AM CDT LABORATORY Chloride 102 94 - 109 mmol/L 06/26/2021 8:37 AM CDT LABORATORY Carbon Dioxide (CO2) 28 20 - 32 mmol/L 06/26/2021 8:37 AM CDT LABORATORY Anion Gap 7 3 - 14 mmol/L 06/26/2021 8:37 AM CDT LABORATORY Urea Nitrogen 22 7 - 30 mg/dL 06/26/2021 8:37 AM CDT LABORATORY Creatinine 1.04 0.66 - 1.25 mg/dL 06/26/2021 8:37 AM CDT LABORATORY Calcium 8.9 8.5 - 10.1 mg/dL 06/26/2021 8:37 AM CDT LABORATORY Glucose 137(H) 70 - 99 mg/dL 06/26/2021 8:37 AM CDT LABORATORY GFR Estimate 79 >60 mL/min/1.7 3m2 06/26/2021 8:37 AM CDT LABORATORY Comment:Effective February 192020 eGFRcr in adults is calculated using the 2020 CKD-EPI creatinine equation which includes age and gender (Ayad et al., NEJM, DOI: 10.1056/IUJCqk9820196) Blood STRUCTURE OF RIGHT UPPER LIMB / Unknown Venipuncture / Unknown 06/26/2021 7:50 AM CDT 06/26/2021 8:12 AM CDT Fe Ullao PROTECTIVE SIGNAL OPERATIONS SUPERVISOR LAB - BLOOD ORDERABL ES LABORATORY [facility] Acute Care Lab [address], [address] [place] [address], [facility] [phone] from Last 3 Months or Most Recently Relevant to Health Maintenance Advance Directives For more information, please contact: [phone] * Full Code (Latest Code Status on File) Date Activated Date Inactivated Comments 06/25/2021 2:35 PM 06/26/2021 12:47 PM All basic and advanced life-sustaining interventions are performed as appropriate Question Answer Comments Code status determined by: Unable to det ermine; FULL CODE until documents or legal decision maker available Care Teams Modern Greek Studies Professor Relationship Specialty Start Date End Date Joe Dumas MD [address] [place], [place] [address] PCP - General Student in organized health care education/training program 05/28/21
== END 2023-09-05 08:17 | disposition home or self-care (01) ==
LOC: NFLDREF 08:18
PROVIDERS: PCP Internal Medicine; Visit Provider Internal Medicine
DX: Z01.818 Encounter for other preprocedural examination (principal); E83.119 Hemochromatosis, unspecified
CPT/HCPCS: 80053

== ENCOUNTER 2024-05-24 08:00 | Outpatient (CLI) | payer MEDICARE, BC, SELFPAY | END 2024-05-24 08:01 | disposition home or self-care (01) | LOC: NFLDREF 05-25 07:35 | PROVIDERS: PCP Internal Medicine; Referring Provider Internal Medicine; Visit Provider Internal Medicine | DX: I10 Essential (primary) hypertension (principal); E83.119 Hemochromatosis, unspecified; Z12.5 Encounter for screening for malignant neoplasm of prostate; Z13.6 Encounter for screening for cardiovascular disorders | CPT/HCPCS: 80053; 80061; G0103 ==

== ENCOUNTER 2024-09-28 08:13 | Outpatient (CLI) | payer MEDICARE, BC, SELFPAY | END 2024-09-28 08:14 | disposition home or self-care (01) | LOC: NFLDREF 10-02 14:14 | PROVIDERS: PCP Internal Medicine; Referring Provider Internal Medicine; Visit Provider Internal Medicine | DX: E78.5 Hyperlipidemia, unspecified (principal); I10 Essential (primary) hypertension; Z12.5 Encounter for screening for malignant neoplasm of prostate | CPT/HCPCS: 80053; 80061; G0103 ==

== ENCOUNTER 2024-10-16 08:03 | Outpatient (CLI) | payer MEDICARE, BC, SELFPAY ==
--- NOTE | 2024-10-16 08:15 | CRLHL7_ITS ---
For Patients: As a result of the Century Cures Act, medical imaging exams and procedure reports are released immediately into your electronic medical record. You may view this report before your referring provider. If you have questions, please contact your health care provider. CLINICAL HISTORY: Tobacco use TECHNIQUE: Madison scale and color Doppler images were acquired of the abdominal aorta and iliac arteries. FINDINGS: Limited visualization of the abdominal aorta given body habitus. Proximally, the aorta measures 2.8 cm in diameter, mid 2.5 1.8 cm, and distally tapers to a measurement of cm. The common iliac arteries are patent and measure 1.4 cm on the left and 1.3 cm in diameter on the right. IMPRESSION: No abdominal aortic aneurysm. Dictated by Brielle Waterman MD @ 10/20/2024 9:28:57 AM (Electronically Signed)
== END 2024-10-16 08:04 | disposition home or self-care (01) ==
LOC: US 08:05
PROVIDERS: PCP Internal Medicine; Visit Provider Internal Medicine
DX: Z13.6 Encounter for screening for cardiovascular disorders (principal); Z72.0 Tobacco use
CPT/HCPCS: 76706

== ENCOUNTER 2024-12-19 15:11 | Outpatient (CLI) | payer MEDICARE, BC, SELFPAY ==
--- NOTE | 2025-01-08 12:49 | W.PM.SLEEP ---
Sleep Study Details Details Interpreting Provider: Kaushal Date of Sleep Study: 12/19/24 Sleep Study Details: STUDY TYPE:? Home unattended ? BMI:? 35.51 ORDERING PROVIDER:? Barry INDICATION:? Concern for sleep apnea ? SLEEP SUMMARY:? 464 minutes sleep time RESPIRATORY SUMMARY:? AHI 40.5 per CMS guideline, 54.9 per rule 1A Low oxygen 74 22% of the study oxygen less than 90% Snoring 100% PERIODIC LIMB MOVEMENTS OF SLEEP:? Not recorded CARDIAC:? Range 50-97, mean 73 beats per minute IMPRESSION:? Severe obstructive sleep apnea with significant hypo oxygenation RECOMMENDATION: Treatment options include CPAP. Recommend in-lab titration due to the low oxygen levels noted during this test. Weight loss is also recommended.
== END 2024-12-19 15:12 | disposition home or self-care (01) ==
LOC: SLEEP 15:12
PROVIDERS: PCP Internal Medicine; Visit Provider Internal Medicine
DX: G47.33 Obstructive sleep apnea (adult) (pediatric) (principal)
CPT/HCPCS: 95806